=== PATIENT | female | born 1980 | race Asian ===

== ENCOUNTER 2017-11-27 22:29 | Emergency (ER) | payer OTHER ==
[2017-11-27 22:38] VITALS: BP 102/67; PULSE 67; TEMP 98.6; BMI 26.4
--- NOTE | 2017-11-27 22:41 | PDOC ---
History of Present Illness - General Chief Complaint: Pain Stated Complaint: PAIN LT HAND AND LT EAR Time Seen by Provider: 11/27/17 22:33 History Source: Patient Exam Limitations: No Limitations - History of Present Illness Initial Comments: 11/27/17 22:49 This is a 37-year-old female who comes in complaining of 2 complaints. The first complaint is pain in her dorsum of her left hand. Patient said she injured it about 4 years ago when a window dropped and closed on it. Patient said it got better after about a week and now she said that she is having some discomfort in the same area again patient denies any new trauma or injury to the hand. Patient's second complaint is that her left ear is bothering her. Patient denies any fevers or chills, patient denies any upper respiratory tract infections. Patient denies any sore throat or problems with her teeth. Patient denies history of ear infections or discharge from her ear. PAST MEDICAL HISTORY: no significant history PAST SURGICAL HISTORY: no significant history FAMILY HISTORY: no pertinant history SOCIAL HISTORY: Pt lives with family and is employed. MEDICATIONS: reviewed ALLERGIES: As per nursing notes Review of Systems General: No fevers or chills, no weakness, no weight loss HEENT: No change in vision. No sore throat,. + Left ear pain CardioVascular: No chest pain or shortness of breath Respiratory:No cough, or wheezing. Gastrointestinal: no nausea, vomitting, diarrhea or constipation, No rectal bleeding Genitourinary: No dysuria, hematuria, or frequency Musculoskeletal: Pain in the dorsum of left hand Neurologic: No headache, vertigo, dizziness or loss of consciousness Psychiatric: nor depression Skin: No rashes or easy bruising Endocrine: no increased thirst or abnormal weight change Allergic: no skin or latex allergy All other systems reviewed and normal GENERAL: The patient is awake, alert, and fully oriented, in no acute distress. HEAD: Normal with no signs of trauma. EARS: The tympanic membranes are normal bilateral, the external canals are normal bilateral there is a minimal amount of cerumen bilateral, there is no erythema or abnormalities of either ear. EYES: Pupils equal, round and reactive to light, extraocular movements intact, sclera anicteric, conjunctiva clear. EXTREMITIES: Normal range of motion, no edema. LEFT HAND: There is some tenderness on the dorsum of the hand, there is no erythema, there is some minimal swelling but no ecchymosis. There is full range of motion of the fingers and the hand with some mild discomfort. There is no bony tenderness. Neurovascular is intact. NEUROLOGICAL: Normal speech, normal gait. grossly intact PSYCH: Normal mood, normal affect. SKIN: Warm, Dry, normal turgor, no rashes or lesions noted. Assessment and plan: This is a 37-year-old female who comes in complaining of left hand pain and left ear pain. Patient's exam was normal of her ear. Patient was told she could purchase an [id number] decongestant to see if that way be helpful to the ear discomfort. And follow-up with her primary care doctor. In addition to that patient was given a referral to the orthopedist for her hand discomfort and told to take ibuprofen or Aleve for the discomfort. Patient was wearing a Velcro splint on her hand. Past History - Past Medical History Allergies/Adverse Reactions: Allergies Allergy/AdvReac Type Severity Reaction Status Date / Time No Known Allergies Allergy Verified 07/30/15 11:50 Home Medications: Ambulatory Orders NK [No Known Home Medication] 11/27/17 - Surgical History Appendectomy: Yes - Suicide/Smoking/Psychosocial Hx Smoking History: Never smoked Hx Alcohol Use: No Drug/Substance Use Hx: No *DC/Admit/Observation/Transfer Diagnosis at time of Disposition: Left hand pain, Left ear pain - Discharge Dispostion Disposition: HOME Condition at time of disposition: Stable Admit: No - Referrals - Patient Instructions Additional Instructions: For the hand pain you can take ibuprofen 2-3 tablets 3 times a day or Aleve 2 tablets twice a day with food don't take on an empty stomach. Follow-up with an orthopedist for the hand pain. If he needed an orthopedist call at [phone] in the morning for an appointment. Purchase some [id number]-[id number] pseudoephedrine and take during the daytime to see if it helps with the ear discomfort as there may be some mild congestion. Follow-up with your primary care doctor in 2-3 days if not improved Return to the emergency department immediately with ANY new, persistent or worsening symptoms. Continue any medications as previously prescribed by your physician. You should follow up with your primary doctor as soon as possible regarding today's emergency department visit. . Please make sure your doctor reviews the results of your emergency evaluation. Thank you for coming to the Emergency Department today for your care. It was a pleasure to see you today. Please note that your evaluation is INCOMPLETE until you follow-up with your doctor. - Post Discharge Activity
== END 2017-11-27 23:23 | disposition home or self-care (01) ==
LOC: FER 22:29
DX: M79.642 Pain in left hand (principal); H92.02 Otalgia, left ear
CPT/HCPCS: 99282-25